=== PATIENT | male | born 1975 | race Caucasian/White ===

== ENCOUNTER 2017-08-15 15:35 | Emergency (ER) | payer BC ==
[~2017-08-15] VITALS: Ht 180.3 cm; Wt 117.9 kg
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
[2017-08-15] MEDS ORDERED: DIAZEPAM 5 MG TABLET ONE (15:57)
[2017-08-15] MEDS ORDERED: KETOROLAC TROMETHAMINE INJ 30 MG/ML VIAL ONE (15:57)
[2017-08-15] MEDS ORDERED: DIAZEPAM 10 MG TABLET PO ONE (16:00)
[2017-08-15] MEDS ORDERED: KETOROLAC TROMETHAMINE INJ 30 MG/ML VIAL IM ONE (16:00)
--- NOTE | 2017-08-15 16:01 | NUR ---
PATIENT TAKEN TO CT VIA STRETCHER.
--- NOTE | 2017-08-15 16:09 | NUR ---
PATIENT RETURNED FROM CT IN STABLE CONDITION, PATIENT MEDICATED PER MD ORDERS.
[2017-08-15 16:59] VITALS: BP 132/88
--- NOTE | 2017-08-15 17:00 | NUR ---
Patient discharged to home in stable condition. Written and verbal after care instructions given. Patient verbalizes understanding of instruction.
== END 2017-08-15 16:59 | disposition home or self-care (01) ==
LOC: ER 15:39
DX: S13.4XXA Sprain of ligaments of cervical spine, initial encounter (principal); S80.02XA Contusion of left knee, initial encounter; E11.9 Type 2 diabetes mellitus without complications; V43.52XA Car driver injured in collision with other type car in traffic accident, initial encounter; Y93.89 Activity, other specified; Y92.89 Other specified places as the place of occurrence of the external cause; Y99.8 Other external cause status
CPT/HCPCS: 72125-TC; 73564-TC; A4606; J1885; Z7610